=== PATIENT | female | born 1985 | race Hispanic/Latino ===

== ENCOUNTER 2016-06-11 19:39 | Emergency (ER) | payer OTHER ==
[2016-06-11] MEDS ORDERED: METOCLOPRAMIDE INJ 10MG/2ML VIAL (J2765) As Ordered ONE (22:25)
[2016-06-11 22:34] LABS: MEAN CORPUSCULAR HEMOGLOBIN 33.6 pg (27.0-33.0); MEAN CORPUSCULAR HGB CONC 34.8 g/dl (32.0-36.5); MEAN CORPUSCULAR VOLUME 96.5 fl (80.0-96.0); RED CELL DISTRIBUTION WIDTH 12.3 % (11.5-14.5)
[2016-06-11 23:09] LABS: ALBUMIN 3.8 GM/DL (3.2-5.2); ALBUMIN/GLOBULIN RATIO 1.12 (1.00-1.93); ALKALINE PHOSPHATASE 53 U/L (45-117); ALT/SGPT 23 U/L (12-78); ANION GAP 10 MEQ/L (8-16); AST/SGOT 13 U/L (15-37); BILIRUBIN,TOTAL 0.4 MG/DL (0.2-1.0); BLOOD UREA NITROGEN 7 MG/DL (7-18); CALCIUM LEVEL 8.8 MG/DL (8.5-10.1); CARBON DIOXIDE LEVEL 26 MEQ/L (21-32); CHLORIDE LEVEL 104 MEQ/L (98-107); GLOMERULAR FILTRATION RATE > 60.0 (>60); GLUCOSE, FASTING 84 MG/DL (70-105); HCG, SERUM QUANTITATIVE 129381 MIU/ML; POTASSIUM SERUM 3.8 MEQ/L (3.5-5.1); SODIUM LEVEL 140 MEQ/L (136-145); TOTAL PROTEIN 7.2 GM/DL (6.4-8.2)
--- NOTE | 2016-06-11 23:30 | REPUSA ---
Clinical history: Pain. Findings: Real-time transabdominal and transvaginal ultrasound images of the pelvis were obtained. An anteverted uterus is noted, measuring 14.7 x 5.7 x 7.8 cm. The uterus demonstrates normal echotextu re and echogenicity. The endometrial cavity demonstrate a irregularly shaped gestational sac measurin g 6.0 x 2.0 x 3.8 cm. pole measures 17.1 mm. No heart tones are appreciated. The right ov geeta measures 3.6 x 2.4 x 2.0 cm. The left ovary measures 2.8 x 1.5 x 2.9 cm. There is a left ovarian cyst measuring 2.2 cm. No adnexal masses are seen. Color Doppler flow is seen within both ovaries. Th ere is no evidence of free fluid. Impression: 1. Intrauterine gestation measuring 8 weeks 1 day by ultrasound measurements. However, no heart tones are appreciated at this time. The gestational sac is irregular in shape as well. The findings are suspicious for a missed . Follow-up with serial serum beta hCG levels is recommended for further evaluation. 2. Left ovarian corpus luteum cyst.
[2016-06-11] MEDS ORDERED: OXYCODONE/APAP 5MG/325MG(BULK) 1 TAB TAB As Ordered ONE (23:57)
[2016-06-11] MEDS ORDERED: METOCLOPRAMIDE 10 MG TAB As Ordered ONE (23:57)
--- NOTE | 2016-06-12 00:20 | EDDOCDS ---
Physician Documentation [facility] Name: Cathryn Leary Age: 31 yrs Sex: Female : 1985 Arrival Date: 06/11/2016 Time: 19:39 Bed I7 Private MD: Sharon Neri M. Disposition: 06/11/16 23:55 Discharged to Home/Self Care. Impression: Missed - 8 weeks 1 day, No heart tones at this time on Ultrasound., Other ovarian cysts - Left, Nausea and vomiting. - Condition is Stable. - Discharge Instructions: Nausea and Vomiting, [id number]-hg-[id number], Miscarriage, Ydxs-[id number]-Rkxq, Ovarian Cyst, Gvwh-jx-Gqap. - Prescriptions for Percocet 5- 325 mg Oral Tablet - take 1 tablet by ORAL route every 6 hours As needed MDD: 4 tabs; 20 tablet. Reglan 10 mg Oral Tablet - take 1 tablet by ORAL route every 6 hours take 30 minutes before meals and at bedtime; 20 tablet. - Medication Reconciliation, Local Pharmacy Hours form. - Follow up: Anshul Fowler; When: 1 - 2 days; Reason: Further diagnostic work-up, Recheck today's complaints, Continuance of care. Follow up: Emergency Department; Reason: Worsening of conditions. - Problem is new. - Symptoms have improved. Historical: - Allergies: no known allergies; - Home Meds: 1. levothyroxine 50 mcg Oral tab once daily - PMHx: Thyroid problem; chronic left shoulder pain; - PSHx: ; - Social history: Smoking status: Patient uses tobacco products, light tobacco smoker. No barriers to communication noted, The patient speaks fluent Trinidadian. - Family history: Not pertinent. - : The pt / caregiver states he / she is not on anticoagulants. Home medication list is obtained from the patient. - Exposure Risk Screening:: None identified. 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 7 in. (170.18 cm); Pain 7/10; 06/12 00:07 BP 134 / 76; Pulse 87; Resp 18; Temp 98.0(O); Pulse Ox 100% on R/A; Pain 0/10; slm 06/11 19:41 Body Mass Index 24.28 (70.31 kg, 170.18 cm) sew MDM: 06/11 22:03 IV Saline Lock ordered. ef1 22:03 Undress patient appropriately for examination ordered. ef1 22:03 NS 0.9% 1000 ml IV at bolus once ordered. ef1 22:03 Metoclopramide 10 mg IV at 40 mg/hr once over 15 mins ordered. ef1 22:04 Type & Screen Ordered. EDMS 22:05 Complete Blood Count Ordered. EDMS 22:05 Hcg, Serum Quantitative Ordered. EDMS 22:05 Urinalysis Ordered. EDMS 22:05 Complete Comphrensive Metabolic Ordered. EDMS 22:05 Urine Culture Ordered. EDMS 22:05 US 1st trimester Ordered. EDMS 22:57 Complete Blood Count Reviewed. ef1 22:57 Urinalysis Reviewed. ef1 22:57 Type & Screen Reviewed. ef1 23:12 Financial registration complete. [facility] 23:20 [facility] Payment Agreement was scanned into [employer] and attached to record. gjb 23:33 Complete Comphrensive Metabolic Reviewed. ef1 23:33 Hcg, Serum Quantitative Reviewed. ef1 23:33 Type & Screen Reviewed. ef1 23:55 Metoclopramide 10 mg PO once; For take home use please. ordered. ef1 23:55 oxyCODONE-acetaminophen 4 pack 5 mg-325 mg 1 packets PO once; Dispense with pt, take as ef1 per instruction on package ordered. 23:[address] [facility] [place]. Nursing Order ordered. ef1 Administered Medications: 22:30 Drug: NS 0.9% 1000 ml [sodium chloride 0.9 % intravenous solution] Route: IV; Rate: ms2 bolus; Site: left antecubital; 22:30 Drug: Metoclopramide 10 mg [metoclopramide 5 mg/mL injection solution] Route: IV; Rate: ms2 40 mg/hr; Infused Over: 15 mins; Site: left antecubital; 06/12 00:00 Drug: oxyCODONE-acetaminophen 4 pack 1 packets [oxycodone-acetaminophen 5 mg-325 mg af2 tablet (1 tabs)] {Co-Signature: slm (Samantha Lake LPN).} Route: PO; 00:06 Drug: Metoclopramide 10 mg [metoclopramide 10 mg tablet (1 tabs)] {Note: home use.} slm Route: PO; Signatures: Dispatcher MedHost EDAlexandria Marcelo RN RN ck1 Yael Elder PA-C PACarmen ef1 Candi Carey RN RN af2 aRdha Allen Tonya, RN RN tm5 Valeriano Traylor RN ms2 Samantha Lake LPN slm Samantha Lake LPN slm The chart was reviewed and I authenticate all verbal orders and agree with the evaluation and treatment provided.Corrections: (The following items were deleted from the chart) 00:08 06/11 19:58 Home Meds: Mirena 20 mcg/24 hr (5 years) intrauterine IUD; tm5 slm Attachments: 23:20 [facility] Payment Agreement gj MTDD
--- NOTE | 2016-06-12 00:20 | EDDOCDS ---
Nurse's Notes [facility] Name: Cathryn Leary Age: 31 yrs Sex: Female : 1985 Arrival Date: 06/11/2016 Time: 19:39 Bed I7 / 29 Private MD: Sharon Neri M. Diagnosis: Missed -8 weeks 1 day, No heart tones at this time on Ultrasound.;Other ovarian cysts-Left;Nausea and vomiting Presentation: 06/11 19:55 Presenting complaint: Patient states: PER PT FOR THE PAST 2 WEEKS NOW SHE HAS HAD tm5 NAUSEA & VOMITING, PT IS 8 WEEKS & TAKES NO MEDS FOR NAUSEA OR VOMITING, PT FEELS WEAK & FATIGUED. Adult Sepsis Screening: The patient does not have new or worsening altered mentation. Patient's respiratory rate is less than 22. Systolic blood pressure is greater than 100. Patient has a qSOFA score of 0- Negative Sepsis Screen. Suicide/Homicide risk assessment- the patient denies having any suicidal and/or homicidal ideations and does not present with any other emotional, behavioral or mental health complaints. 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 Transition of care: patient was not received from another setting of care. 19:55 Acuity: LYRIC Level 3 tm5 19:55 Method Of Arrival: Walkin/Carried/Asstd tm5 Triage Assessment: 19:58 General: Appears in no apparent distress, Behavior is anxious, appropriate for age. tm5 Pain: Denies pain. Pt Declines HIV testing. Neurological: Level of Consciousness is awake, alert, Oriented to person, place, time. Respiratory: Airway is patent Respiratory effort is even, unlabored, Respiratory pattern is regular, symmetrical. GI: Reports nausea, vomiting. : No deficits noted. Derm: Skin is pink, warm & dry. normal. 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 levothyroxine 50 mcg Oral tab once daily - PMHx: Thyroid problem; chronic left shoulder pain; - PSHx: ; - Social history: Smoking status: Patient uses tobacco products, light tobacco smoker. No barriers to communication noted, The patient speaks fluent Bulgarian. - Family history: Not pertinent. - : The pt / caregiver states he / she is not on anticoagulants. Home medication list is obtained from the patient. - Exposure Risk Screening:: None identified. Screenin:01 Screening information is obtained from the patient. Fall risk: No risks identified. tm5 Assistance ADL's: requires no assistance with activities of daily living. Abuse/DV Screen: The patient / caregiver reports he/she is: not in a situation that causes fear, pain or injury. Nutritional screening: No deficits noted. Advance Directives: Currently, there is no health care proxy. home support is adequate. Assessment: 21:33 General: Appears in no apparent distress, comfortable, Behavior is appropriate for age, ck1 cooperative. Pain: Location: abdomen Pain currently is 2 out of 10 on a pain scale. Quality of pain is described as crampy. GI: Abdomen is non- distended Bowel sounds present X 4 quads. Abd is soft and non tender X 4 quads. Reports nausea, vomiting. : Denies vaginal bleeding. : Denies burning with urination, inability to void. Derm: Skin is pink, warm & dry. 22:30 General: Appears in no apparent distress, Behavior is cooperative. General: teary at ms2 times. Neurological: Level of Consciousness is awake, alert, obeys commands. Respiratory: No deficits noted. Airway is patent Respiratory effort is even, unlabored, Respiratory pattern is regular, symmetrical. Derm: Skin is pink, warm & dry. 06/12 00:17 General: Appears in no apparent distress, comfortable, Behavior is crying, pt and af2 spouse at bedside. rr even and unlabored. speech clear. . Vital Signs: 06/11 19:41 BP 126 / 78; Pulse 78; Resp 16; Temp 96.7(T); Pulse Ox 100% on R/A; Weight 70.31 kg; sew Height 5 ft. 7 in. (170.18 cm); Pain 7/10; 06/12 00:07 BP 134 / 76; Pulse 87; Resp 18; Temp 98.0(O); Pulse Ox 100% on R/A; Pain 0/10; slm 06/11 19:41 Body Mass Index 24.28 (70.31 kg, 170.18 cm) sew Vitals: 06/11 19:41 Log In Time: June 11, 2016 at 19:33. sew ED Course: 19:40 Patient visited by Carol Ann Sepulveda. sew 19:40 Patient moved to Waiting sew 19:41 Sharon Neri is Private Physician. sew 19:42 Patient visited by Carol Ann Sepulveda. sew 19:42 Patient moved to Pre RCE sew 19:58 Triage Initiated tm5 19:58 Family accompanied patient. tm5 21:31 Patient moved to Triage 2 ck1 21:32 Patient moved to Triage 3 nn1 21:33 Patient visited by Alexandria Chaney,BOB. ck1 21:34 The patient / caregiver is instructed regarding the plan of care and ED course. ck1 21:41 Yael Elder PA-C is PHCP. ef1 21:41 Maikel Pratt DO is Attending Physician. ef1 21:49 Patient visited by Yael Elder PA-C. ef1 22:06 Patient moved to d 22:20 Inserted peripheral IV: 20gauge IV in left antecubital area Patient tolerated the ms2 procedure well. 22:24 Patient visited by Valeriano Traylor RN. ms2 22:24 Complete Blood Count Sent. ms2 22:24 Hcg, Serum Quantitative Sent. ms2 22:24 Type & Screen Sent. ms2 22:57 Patient visited by Yael Elder PA-C. ef1 23:20 [facility] Payment Agreement was scanned into Dwe[employer] and attached to record. gjb 23:31 Patient visited by Yael Elder PA-C. ef1 23:52 Patient visited by Yael Elder PA-C. ef1 23:55 Anshul Fowler is Referral Physician. ef1 06/12 00:06 US 1st trimester Returned. EDMS 00:19 Patient visited by Candi Carey RN. af2 Administered Medications: 06/11 22:30 Drug: NS 0.9% 1000 ml [sodium chloride 0.9 % intravenous solution] Route: IV; Rate: ms2 bolus; Site: left antecubital; 22:30 Drug: Metoclopramide 10 mg [metoclopramide 5 mg/mL injection solution] Route: IV; Rate: ms2 40 mg/hr; Infused Over: 15 mins; Site: left antecubital; 06/12 00:00 Drug: oxyCODONE-acetaminophen 4 pack 1 packets [oxycodone-acetaminophen 5 mg-325 mg af2 tablet (1 tabs)] {Co-Signature: slm (Samanthaangela Lake LPN).} Route: PO; 00:06 Drug: Metoclopramide 10 mg [metoclopramide 10 mg tablet (1 tabs)] {Note: home use.} slm Route: PO; Order Results: Lab Order: Complete Blood Count; SPEC'M 06/11/16 22:13 Test: WHITE BLOOD COUNT; Value: 7.0; Range: 4.0-10.0; Units: K/mm3; Status: F Test: RED BLOOD COUNT; Value: 3.94; Range: 4.00-5.40; Abnormal: Below low normal; Units: M/mm3; Status: F Test: HEMOGLOBIN; Value: 13.2; Range: 12.0-16.0; Units: g/dl; Status: F Test: HEMATOCRIT; Value: 38.0; Range: 36.0-47.0; Units: %; Status: F Test: MEAN CORPUSCULAR VOLUME; Value: 96.5; Range: 80.0-96.0; Abnormal: Above high normal; Units: fl; Status: F Test: MEAN CORPUSCULAR HEMOGLOBIN; Value: 33.6; Range: 27.0-33.0; Abnormal: Above high normal; Units: pg; Status: F Test: MEAN CORPUSCULAR HGB CONC; Value: 34.8; Range: 32.0-36.5; Units: g/dl; Status: F Test: RED CELL DISTRIBUTION WIDTH; Value: 12.3; Range: 11.5-14.5; Units: %; Status: F Test: PLATELET COUNT, AUTOMATED; Value: 237; Range: 150-450; Units: k/mm3; Status: F Lab Order: Hcg, Serum Quantitative; SPEC'M 06/11/16 22:13 Test: HCG, SERUM QUANTITATIVE; Value: [id number]; Units: MIU/ML; Status: F Test Note: ; GESTATIONAL AGE APPROXIMATE HCG RANGE (MIU/ML) 0.2-1 WEEK 5-50 1-2 WEEKS 50-500 2-3 WEEKS 100-5,000 3-4 WEEKS 500-10,000 4-5 WEEKS 1,000-50,000 5-6 WEEKS 10,000-100,000 6-8 WEEKS 15,000-200,000 2-3 MONTHS 10,000-100,000 NON FEMALES LESS THAN 3.0 Patient samples may contain human heterophilic antibodies that could react with immunoassays to give falsely elevated or depressed results. This assay has been designed to minimize interference from heterophilic antibodies. Elevated hCG levels have also been associated with trophoblastic disease and nontrophoblastic neoplasms. The possibility of having these diseases should be considered before a diagnosis of is made. This test is not intended for use as a surrogate marker for aiding in the diagnosis or monitoring the treatment of cancer patients. Siemens StepLeader methodology. Lab Order: Type & Screen; SPEC'M 06/11/16 22:13 Test: BLOOD TYPE; Value: A POS; Status: F Test: AB SCREEN (INDIRECT BASSAM)GEL; Value: NEGATIVE; Status: F Lab Order: Urinalysis; SPEC'M 06/11/16 22:10 Test: APPEARANCE, URINE; Value: HAZY; Range: CLEAR; Status: F Test: COLOR, URINE; Value: YELLOW; Range: YELLOW; Status: F Test: PH,URINE; Value: 6.0; Range: 5.0-9.0; Units: UNITS; Status: F Test: SPECIFIC GRAVITY URINE AUTO; Value: 1.019; Range: 1.002-1.035; Status: F Test: PROTEIN, URINE AUTO; Value: NEGATIVE; Range: NEGATIVE; Units: mg/dL; Status: F Test: GLUCOSE, URINE (UA) AUTO; Value: NEGATIVE; Range: NEGATIVE; Units: mg/dL; Status: F Test: KETONE, URINE AUTO; Value: TRACE; Range: NEGATIVE; Abnormal: Above high normal; Units: mg/dL; Status: F Test: UROBILINOGEN, URINE AUTO; Value: 0.2; Range: 0.0-2.0; Units: mg/dL; Status: F Test: BILIRUBIN, URINE AUTO; Value: NEGATIVE; Range: NEGATIVE; Status: F Test: NITRITE, URINE AUTO; Value: NEGATIVE; Range: NEGATIVE; Status: F Test: LEUKOCYTE ESTERASE, URINE AUTO; Value: NEGATIVE; Range: NEGATIVE; Status: F Test: BLOOD, URINE BLOOD; Value: NEGATIVE; Range: NEGATIVE; Status: F Test: WBC, URINE AUTO; Value: 1; Range: 0-3; Units: /HPF; Status: F Test: RBC, URINE AUTO; Value: 1; Range: 0-3; Units: /HPF; Status: F Test: BACTERIA, URINE AUTO; Value: 1+; Range: NEGATIVE; Abnormal: Above high normal; Status: F Test: SQUAMOUS EPITHELIAL CELL UR AU; Value: 9; Range: 0-6; Units: /HPF; Status: F Test: MUCUS, URINE; Value: LARGE; Range: NEGATIVE; Status: F Test: HYALINE CAST, URINE AUTO; Value: 2; Range: 0-1; Units: /LPF; Status: F Lab Order: Complete Comphrensive Metabolic; SPEC'M 06/11/16 22:13 Test: GLUCOSE, FASTING; Value: 84; Range: 70-105; Units: MG/DL; Status: F Test: BLOOD UREA NITROGEN; Value: 7; Range: 7-18; Units: MG/DL; Status: F Test: CREATININE FOR GFR; Value: 0.70; Range: 0.55-1.02; Units: MG/DL; Status: F Test: GLOMERULAR FILTRATION RATE; Value: > 60.0; Range: >60; Status: F Test: SODIUM LEVEL; Value: 140; Range: 136-145; Units: MEQ/L; Status: F Test: POTASSIUM SERUM; Value: 3.8; Range: 3.5-5.1; Units: MEQ/L; Status: F Test: CHLORIDE LEVEL; Value: 104; Range: 98-107; Units: MEQ/L; Status: F Test: CARBON DIOXIDE LEVEL; Value: 26; Range: 21-32; Units: MEQ/L; Status: F Test: ANION GAP; Value: 10; Range: 8-16; Units: MEQ/L; Status: F Test: CALCIUM LEVEL; Value: 8.8; Range: 8.5-10.1; Units: MG/DL; Status: F Test: AST/SGOT; Value: 13; Range: 15-37; Abnormal: Below low normal; Units: U/L; Status: F Test: ALT/SGPT; Value: 23; Range: 12-78; Units: U/L; Status: F Test: ALKALINE PHOSPHATASE; Value: 53; Range: 45-117; Units: U/L; Status: F Test: BILIRUBIN,TOTAL; Value: 0.4; Range: 0.2-1.0; Units: MG/DL; Status: F Test: TOTAL PROTEIN; Value: 7.2; Range: 6.4-8.2; Units: GM/DL; Status: F Test: ALBUMIN; Value: 3.8; Range: 3.2-5.2; Units: GM/DL; Status: F Test: ALBUMIN/GLOBULIN RATIO; Value: 1.12; Range: 1.00-1.93; Status: F Test Note: ; Units are mL/min/1.73 m2 Chronic Kidney Disease Staging per NKF: Stage I & II GFR >=60 Normal to Mildly Decreased Stage III GFR 30-59 Moderately Decreased Stage IV GFR 15-29 Severely Decreased Stage V GFR <15 Very Little GFR Left ESRD GFR <15 on MULTI SHARE PROGRAM COORDINATOR Radiology Order: US 1st trimester Test: US 1st trimester REASON FOR EXAMINATION: pelvic pain, ; ; Clinical history: Pain.; Findings: Real-time transabdominal and transvaginal ultrasound images of the pelvis were obtained. An; anteverted uterus is noted, measuring 14.7 x 5.7 x 7.8 cm. The uterus demonstrates normal echotextu; re and echogenicity. The endometrial cavity demonstrate a irregularly shaped gestational sac measurin; g 6.0 x 2.0 x 3.8 cm. pole measures 17.1 mm. No heart tones are appreciated. The right ov; geeta measures 3.6 x 2.4 x 2.0 cm. The left ovary measures 2.8 x 1.5 x 2.9 cm. There is a left ovarian; cyst measuring 2.2 cm. No adnexal masses are seen. Color Doppler flow is seen within both ovaries. Th; ere is no evidence of free fluid.; Impression:; 1. Intrauterine gestation measuring 8 weeks 1 day by ultrasound measurements. However, no heart; tones are appreciated at this time. The gestational sac is irregular in shape as well. The findings; are suspicious for a missed . Follow-up with serial serum beta hCG levels is recommended for; further evaluation.; 2. Left ovarian corpus luteum cyst.; ; Outcome: 06/11 23:55 Discharge ordered by Provider. ef1 06/12 00:19 Patient left the ED. af2 Signatures: Dispatcher MedHost EDMS Valeriano Traylor,RN RN ms2 Alexandria Chaney RN RN ck1 Yael Elder, PAYeimiC PA-C ef1 Carol Ann Sepulveda Stephanie, LPN LPN slm Donoghue, Joseph, DILAN DIRECTOR OF VALUATION Candi Beltran RN RN af2 Seymour Oliver RN RN nn1 Radha Allen Tonya, RN RN tm5 Samantha pisano Corrections: (The following items were deleted from the chart) 00:08 06/11 19:58 Home Meds: Mirena 20 mcg/24 hr (5 years) intrauterine IUD; tm5 kimberlee MTDD
--- NOTE | 2016-06-14 01:20 | EDDOCDS ---
Physician Documentation [facility] Name: Cathryn Leary Age: 31 yrs Sex: Female : 1985 Arrival Date: 06/11/2016 Time: 19:39 Bed I7 Private MD: Sharon Neri M. Disposition: 06/11/16 23:55 Discharged to Home/Self Care. Impression: Missed - 8 weeks 1 day, No heart tones at this time on Ultrasound., Other ovarian cysts - Left, Nausea and vomiting. - Condition is Stable. - Discharge Instructions: Nausea and Vomiting, Pclw-io-Yahg, Miscarriage, Vkzv-fl-Gpil, Ovarian Cyst, Hhgb-pj-Erxm. - Prescriptions for Percocet 5- 325 mg Oral Tablet - take 1 tablet by ORAL route every 6 hours As needed MDD: 4 tabs; 20 tablet. Reglan 10 mg Oral Tablet - take 1 tablet by ORAL route every 6 hours take 30 minutes before meals and at bedtime; 20 tablet. - Medication Reconciliation, Local Pharmacy Hours form. - Follow up: Anshul Fowler; When: 1 - 2 days; Reason: Further diagnostic work-up, Recheck today's complaints, Continuance of care. Follow up: Emergency Department; Reason: Worsening of conditions. - Problem is new. - Symptoms have improved. Historical: - Allergies: no known allergies; - Home Meds: 1. levothyroxine 50 mcg Oral tab once daily - PMHx: Thyroid problem; chronic left shoulder pain; - PSHx: ; - Social history: Smoking status: Patient uses tobacco products, light tobacco smoker. No barriers to communication noted, The patient speaks fluent South Korean. - Family history: Not pertinent. - : The pt / caregiver states he / she is not on anticoagulants. Home medication list is obtained from the patient. - Exposure Risk Screening:: None identified. 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 7 in. (170.18 cm); Pain 7/10; 06/12 00:07 BP 134 / 76; Pulse 87; Resp 18; Temp 98.0(O); Pulse Ox 100% on R/A; Pain 0/10; slm 06/11 19:41 Body Mass Index 24.28 (70.31 kg, 170.18 cm) sew MDM: 06/11 22:03 IV Saline Lock ordered. ef1 22:03 Undress patient appropriately for examination ordered. ef1 22:03 NS 0.9% 1000 ml IV at bolus once ordered. ef1 22:03 Metoclopramide 10 mg IV at 40 mg/hr once over 15 mins ordered. ef1 22:04 Type & Screen Ordered. EDMS 22:05 Complete Blood Count Ordered. EDMS 22:05 Hcg, Serum Quantitative Ordered. EDMS 22:05 Urinalysis Ordered. EDMS 22:05 Complete Comphrensive Metabolic Ordered. EDMS 22:05 Urine Culture Ordered. EDMS 22:05 US 1st trimester Ordered. EDMS 22:57 Complete Blood Count Reviewed. ef1 22:57 Urinalysis Reviewed. ef1 22:57 Type & Screen Reviewed. ef1 23:12 Financial registration complete. b 23:20 [facility] Payment Agreement was scanned into [employer] and attached to record. gjb 23:33 Complete Comphrensive Metabolic Reviewed. ef1 23:33 Hcg, Serum Quantitative Reviewed. ef1 23:33 Type & Screen Reviewed. ef1 23:55 Metoclopramide 10 mg PO once; For take home use please. ordered. ef1 23:55 oxyCODONE-acetaminophen 4 pack 5 mg-325 mg 1 packets PO once; Dispense with pt, take as ef1 per instruction on package ordered. 23:58 [facility] [place]. Nursing Order ordered. ef1 06/12 12:21 T-Sheet-- Draft Copy was scanned into [employer] and attached to record. gb 12:21 Radiology Report was scanned into [employer] and attached to record. gb Administered Medications: 06/11 22:30 Drug: NS 0.9% 1000 ml [sodium chloride 0.9 % intravenous solution] Route: IV; Rate: ms2 bolus; Site: left antecubital; 22:30 Drug: Metoclopramide 10 mg [metoclopramide 5 mg/mL injection solution] Route: IV; Rate: ms2 40 mg/hr; Infused Over: 15 mins; Site: left antecubital; 06/12 00:00 Drug: oxyCODONE-acetaminophen 4 pack 1 packets [oxycodone-acetaminophen 5 mg-325 mg af2 tablet (1 tabs)] {Co-Signature: slm (Samantha Lake LPN).} Route: PO; 00:06 Drug: Metoclopramide 10 mg [metoclopramide 10 mg tablet (1 tabs)] {Note: home use.} slm Route: PO; Signatures: Dispatcher MedHost EDMS Diya Silver, Reg Reg gb Alexandria Chaney,RN RN ck1 Yael Elder PA-C PA-C efCandi Wren RN RN af2 Radha Allen Tonya, RN RN tm5 Valeriano Traylor RN ms2 Samantha Lake LPN slkimberlee Lake LPN slkimberlee The chart was reviewed and I authenticate all verbal orders and agree with the evaluation and treatment provided.Corrections: (The following items were deleted from the chart) 00:08 06/11 19:58 Home Meds: Mirena 20 mcg/24 hr (5 years) intrauterine IUD; tm5 slm Attachments: 23:20 [facility] Payment Agreement gjb 06/12 12:21 T-Sheet-- Draft Copy gb Chart Complete MTDD
--- NOTE | 2016-06-14 01:20 | EDDOCDS ---
Physician Documentation [facility] Name: Cathryn Leary Age: 31 yrs Sex: Female : 1985 Arrival Date: 06/11/2016 Time: 19:39 Bed I7 Private MD: Sharon Neri M. Disposition: 06/11/16 23:55 Discharged to Home/Self Care. Impression: Missed - 8 weeks 1 day, No heart tones at this time on Ultrasound., Other ovarian cysts - Left, Nausea and vomiting. - Condition is Stable. - Discharge Instructions: Nausea and Vomiting, [id number], Miscarriage, Syuy-og-Cvif, Ovarian Cyst, Psmv-ef-Usbu. - Prescriptions for Percocet 5- 325 mg Oral Tablet - take 1 tablet by ORAL route every 6 hours As needed MDD: 4 tabs; 20 tablet. Reglan 10 mg Oral Tablet - take 1 tablet by ORAL route every 6 hours take 30 minutes before meals and at bedtime; 20 tablet. - Medication Reconciliation, Local Pharmacy Hours form. - Follow up: Anshul Fowler; When: 1 - 2 days; Reason: Further diagnostic work-up, Recheck today's complaints, Continuance of care. Follow up: Emergency Department; Reason: Worsening of conditions. - Problem is new. - Symptoms have improved. Historical: - Allergies: no known allergies; - Home Meds: 1. levothyroxine 50 mcg Oral tab once daily - PMHx: Thyroid problem; chronic left shoulder pain; - PSHx: ; - Social history: Smoking status: Patient uses tobacco products, light tobacco smoker. No barriers to communication noted, The patient speaks fluent Dominican. - Family history: Not pertinent. - : The pt / caregiver states he / she is not on anticoagulants. Home medication list is obtained from the patient. - Exposure Risk Screening:: None identified. 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 7 in. (170.18 cm); Pain 7/10; 06/12 00:07 BP 134 / 76; Pulse 87; Resp 18; Temp 98.0(O); Pulse Ox 100% on R/A; Pain 0/10; slm 06/11 19:41 Body Mass Index 24.28 (70.31 kg, 170.18 cm) sew MDM: 06/11 22:03 IV Saline Lock ordered. ef1 22:03 Undress patient appropriately for examination ordered. ef1 22:03 NS 0.9% 1000 ml IV at bolus once ordered. ef1 22:03 Metoclopramide 10 mg IV at 40 mg/hr once over 15 mins ordered. ef1 22:04 Type & Screen Ordered. EDMS 22:05 Complete Blood Count Ordered. EDMS 22:05 Hcg, Serum Quantitative Ordered. EDMS 22:05 Urinalysis Ordered. EDMS 22:05 Complete Comphrensive Metabolic Ordered. EDMS 22:05 Urine Culture Ordered. EDMS 22:05 US 1st trimester Ordered. EDMS 22:57 Complete Blood Count Reviewed. ef1 22:57 Urinalysis Reviewed. ef1 22:57 Type & Screen Reviewed. ef1 23:12 Financial registration complete. b 23:20 [facility] Payment Agreement was scanned into [employer] and attached to record. gjb 23:33 Complete Comphrensive Metabolic Reviewed. ef1 23:33 Hcg, Serum Quantitative Reviewed. ef1 23:33 Type & Screen Reviewed. ef1 23:55 Metoclopramide 10 mg PO once; For take home use please. ordered. ef1 23:55 oxyCODONE-acetaminophen 4 pack 5 mg-325 mg 1 packets PO once; Dispense with pt, take as ef1 per instruction on package ordered. 23:58 [facility]. Nursing Order ordered. ef1 06/12 12:21 T-Sheet-- Draft Copy was scanned into [employer] and attached to record. gb 12:21 Radiology Report was scanned into [employer] and attached to record. gb Administered Medications: 06/11 22:30 Drug: NS 0.9% 1000 ml [sodium chloride 0.9 % intravenous solution] Route: IV; Rate: ms2 bolus; Site: left antecubital; 22:30 Drug: Metoclopramide 10 mg [metoclopramide 5 mg/mL injection solution] Route: IV; Rate: ms2 40 mg/hr; Infused Over: 15 mins; Site: left antecubital; 06/12 00:00 Drug: oxyCODONE-acetaminophen 4 pack 1 packets [oxycodone-acetaminophen 5 mg-325 mg af2 tablet (1 tabs)] {Co-Signature: slm (Samantha Lake LPN).} Route: PO; 00:06 Drug: Metoclopramide 10 mg [metoclopramide 10 mg tablet (1 tabs)] {Note: home use.} slm Route: PO; Signatures: Dispatcher [employer] EDMS Diya Silver, Reg Reg gb Alexandria Chaney,RN RN ck1 Yael Elder PA-C PA-C efCandi Wren RN RN af2 Radha Allen Tonya, RN RN tm5 Valeriano Traylor RN ms2 Samantha Lake LPN slkimberlee Lake LPN slkimberlee The chart was reviewed and I authenticate all verbal orders and agree with the evaluation and treatment provided.Corrections: (The following items were deleted from the chart) 00:08 06/11 19:58 Home Meds: Mirena 20 mcg/24 hr (5 years) intrauterine IUD; tm5 slm Attachments: 23:20 [facility] Payment Agreement gjb 06/12 12:21 T-Sheet-- Draft Copy gb Chart Complete MTDD
--- NOTE | 2016-06-14 01:20 | EDDOCDS ---
Nurse's Notes [facility] Name: Cathryn Leary Age: 31 yrs Sex: Female : 1985 Arrival Date: 06/11/2016 Time: 19:39 Bed I7 / 29 Private MD: Sharon Neri M. Diagnosis: Missed -8 weeks 1 day, No heart tones at this time on Ultrasound.;Other ovarian cysts-Left;Nausea and vomiting Presentation: 06/11 19:55 Presenting complaint: Patient states: PER PT FOR THE PAST 2 WEEKS NOW SHE HAS HAD tm5 NAUSEA & VOMITING, PT IS 8 WEEKS & TAKES NO MEDS FOR NAUSEA OR VOMITING, PT FEELS WEAK & FATIGUED. Adult Sepsis Screening: The patient does not have new or worsening altered mentation. Patient's respiratory rate is less than 22. Systolic blood pressure is greater than 100. Patient has a qSOFA score of 0- Negative Sepsis Screen. Suicide/Homicide risk assessment- the patient denies having any suicidal and/or homicidal ideations and does not present with any other emotional, behavioral or mental health complaints. 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 Transition of care: patient was not received from another setting of care. 19:55 Acuity: LYRIC Level 3 tm5 19:55 Method Of Arrival: Walkin/Carried/Asstd tm5 Triage Assessment: 19:58 General: Appears in no apparent distress, Behavior is anxious, appropriate for age. tm5 Pain: Denies pain. Pt Declines HIV testing. Neurological: Level of Consciousness is awake, alert, Oriented to person, place, time. Respiratory: Airway is patent Respiratory effort is even, unlabored, Respiratory pattern is regular, symmetrical. GI: Reports nausea, vomiting. : No deficits noted. Derm: Skin is pink, warm & dry. normal. 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 levothyroxine 50 mcg Oral tab once daily - PMHx: Thyroid problem; chronic left shoulder pain; - PSHx: ; - Social history: Smoking status: Patient uses tobacco products, light tobacco smoker. No barriers to communication noted, The patient speaks fluent Zambian. - Family history: Not pertinent. - : The pt / caregiver states he / she is not on anticoagulants. Home medication list is obtained from the patient. - Exposure Risk Screening:: None identified. Screenin:01 Screening information is obtained from the patient. Fall risk: No risks identified. tm5 Assistance ADL's: requires no assistance with activities of daily living. Abuse/DV Screen: The patient / caregiver reports he/she is: not in a situation that causes fear, pain or injury. Nutritional screening: No deficits noted. Advance Directives: Currently, there is no health care proxy. home support is adequate. Assessment: 21:33 General: Appears in no apparent distress, comfortable, Behavior is appropriate for age, ck1 cooperative. Pain: Location: abdomen Pain currently is 2 out of 10 on a pain scale. Quality of pain is described as crampy. GI: Abdomen is non- distended Bowel sounds present X 4 quads. Abd is soft and non tender X 4 quads. Reports nausea, vomiting. : Denies vaginal bleeding. : Denies burning with urination, inability to void. Derm: Skin is pink, warm & dry. 22:30 General: Appears in no apparent distress, Behavior is cooperative. General: teary at ms2 times. Neurological: Level of Consciousness is awake, alert, obeys commands. Respiratory: No deficits noted. Airway is patent Respiratory effort is even, unlabored, Respiratory pattern is regular, symmetrical. Derm: Skin is pink, warm & dry. 06/12 00:17 General: Appears in no apparent distress, comfortable, Behavior is crying, pt and af2 spouse at bedside. rr even and unlabored. speech clear. . Vital Signs: 06/11 19:41 BP 126 / 78; Pulse 78; Resp 16; Temp 96.7(T); Pulse Ox 100% on R/A; Weight 70.31 kg; sew Height 5 ft. 7 in. (170.18 cm); Pain 7/10; 06/12 00:07 BP 134 / 76; Pulse 87; Resp 18; Temp 98.0(O); Pulse Ox 100% on R/A; Pain 0/10; slm 06/11 19:41 Body Mass Index 24.28 (70.31 kg, 170.18 cm) sew Vitals: 06/11 19:41 Log In Time: June 11, 2016 at 19:33. sew ED Course: 19:40 Patient visited by Carol Ann Sepulveda. sew 19:40 Patient moved to Waiting sew 19:41 Sharon Neri is Private Physician. sew 19:42 Patient visited by Carol Ann Sepulveda. sew 19:42 Patient moved to Pre RCE sew 19:58 Triage Initiated tm5 19:58 Family accompanied patient. tm5 21:31 Patient moved to Triage 2 ck1 21:32 Patient moved to Triage 3 nn1 21:33 Patient visited by Alexandria Chaney,BOB. ck1 21:34 The patient / caregiver is instructed regarding the plan of care and ED course. ck1 21:41 Yael Elder PA-C is PHCP. ef1 21:41 Maikel Pratt DO is Attending Physician. ef1 21:49 Patient visited by Yael Elder PA-C. ef1 22:06 Patient moved to d 22:20 Inserted peripheral IV: 20gauge IV in left antecubital area Patient tolerated the ms2 procedure well. 22:24 Patient visited by Valeriano Traylor RN. ms2 22:24 Complete Blood Count Sent. ms2 22:24 Hcg, Serum Quantitative Sent. ms2 22:24 Type & Screen Sent. ms2 22:57 Patient visited by Yael Elder PA-C. ef1 23:20 [facility] Payment Agreement was scanned into [employer] and attached to record. gjb 23:31 Patient visited by Yael Eldre PA-C. ef1 23:52 Patient visited by Yael Elder PA-C. ef1 23:55 Anshul Fowler is Referral Physician. ef1 06/12 00:06 US 1st trimester Returned. EDMS 00:19 Patient visited by Candi Carey RN. af2 12:21 T-Sheet-- Draft Copy was scanned into [employer] and attached to record. gb 12:21 Radiology Report was scanned into [employer] and attached to record. gb Administered Medications: 06/11 22:30 Drug: NS 0.9% 1000 ml [sodium chloride 0.9 % intravenous solution] Route: IV; Rate: ms2 bolus; Site: left antecubital; 22:30 Drug: Metoclopramide 10 mg [metoclopramide 5 mg/mL injection solution] Route: IV; Rate: ms2 40 mg/hr; Infused Over: 15 mins; Site: left antecubital; 06/12 00:00 Drug: oxyCODONE-acetaminophen 4 pack 1 packets [oxycodone-acetaminophen 5 mg-325 mg af2 tablet (1 tabs)] {Co-Signature: slm (Samantha Fangtyrell GONSALEZ).} Route: PO; 00:06 Drug: Metoclopramide 10 mg [metoclopramide 10 mg tablet (1 tabs)] {Note: home use.} slm Route: PO; Order Results: Lab Order: Complete Blood Count; SPEC'M 06/11/16 22:13 Test: WHITE BLOOD COUNT; Value: 7.0; Range: 4.0-10.0; Units: K/mm3; Status: F Test: RED BLOOD COUNT; Value: 3.94; Range: 4.00-5.40; Abnormal: Below low normal; Units: M/mm3; Status: F Test: HEMOGLOBIN; Value: 13.2; Range: 12.0-16.0; Units: g/dl; Status: F Test: HEMATOCRIT; Value: 38.0; Range: 36.0-47.0; Units: %; Status: F Test: MEAN CORPUSCULAR VOLUME; Value: 96.5; Range: 80.0-96.0; Abnormal: Above high normal; Units: fl; Status: F Test: MEAN CORPUSCULAR HEMOGLOBIN; Value: 33.6; Range: 27.0-33.0; Abnormal: Above high normal; Units: pg; Status: F Test: MEAN CORPUSCULAR HGB CONC; Value: 34.8; Range: 32.0-36.5; Units: g/dl; Status: F Test: RED CELL DISTRIBUTION WIDTH; Value: 12.3; Range: 11.5-14.5; Units: %; Status: F Test: PLATELET COUNT, AUTOMATED; Value: 237; Range: 150-450; Units: k/mm3; Status: F Lab Order: Hcg, Serum Quantitative; SPEC'M 06/11/16 22:13 Test: HCG, SERUM QUANTITATIVE; Value: [id number]; Units: MIU/ML; Status: F Test Note: ; GESTATIONAL AGE APPROXIMATE HCG RANGE (MIU/ML) 0.2-1 WEEK 5-50 1-2 WEEKS 50-500 2-3 WEEKS 100-5,000 3-4 WEEKS 500-10,000 4-5 WEEKS 1,000-50,000 5-6 WEEKS 10,000-100,000 6-8 WEEKS 15,000-200,000 2-3 MONTHS 10,000-100,000 NON FEMALES LESS THAN 3.0 Patient samples may contain human heterophilic antibodies that could react with immunoassays to give falsely elevated or depressed results. This assay has been designed to minimize interference from heterophilic antibodies. Elevated hCG levels have also been associated with trophoblastic disease and nontrophoblastic neoplasms. The possibility of having these diseases should be considered before a diagnosis of is made. This test is not intended for use as a surrogate marker for aiding in the diagnosis or monitoring the treatment of cancer patients. Siemens ustyme methodology. Lab Order: Type & Screen; SPEC'M 06/11/16 22:13 Test: BLOOD TYPE; Value: A POS; Status: F Test: AB SCREEN (INDIRECT BASSAM)GEL; Value: NEGATIVE; Status: F Lab Order: Urinalysis; SPEC'M 06/11/16 22:10 Test: APPEARANCE, URINE; Value: HAZY; Range: CLEAR; Status: F Test: COLOR, URINE; Value: YELLOW; Range: YELLOW; Status: F Test: PH,URINE; Value: 6.0; Range: 5.0-9.0; Units: UNITS; Status: F Test: SPECIFIC GRAVITY URINE AUTO; Value: 1.019; Range: 1.002-1.035; Status: F Test: PROTEIN, URINE AUTO; Value: NEGATIVE; Range: NEGATIVE; Units: mg/dL; Status: F Test: GLUCOSE, URINE (UA) AUTO; Value: NEGATIVE; Range: NEGATIVE; Units: mg/dL; Status: F Test: KETONE, URINE AUTO; Value: TRACE; Range: NEGATIVE; Abnormal: Above high normal; Units: mg/dL; Status: F Test: UROBILINOGEN, URINE AUTO; Value: 0.2; Range: 0.0-2.0; Units: mg/dL; Status: F Test: BILIRUBIN, URINE AUTO; Value: NEGATIVE; Range: NEGATIVE; Status: F Test: NITRITE, URINE AUTO; Value: NEGATIVE; Range: NEGATIVE; Status: F Test: LEUKOCYTE ESTERASE, URINE AUTO; Value: NEGATIVE; Range: NEGATIVE; Status: F Test: BLOOD, URINE BLOOD; Value: NEGATIVE; Range: NEGATIVE; Status: F Test: WBC, URINE AUTO; Value: 1; Range: 0-3; Units: /HPF; Status: F Test: RBC, URINE AUTO; Value: 1; Range: 0-3; Units: /HPF; Status: F Test: BACTERIA, URINE AUTO; Value: 1+; Range: NEGATIVE; Abnormal: Above high normal; Status: F Test: SQUAMOUS EPITHELIAL CELL UR AU; Value: 9; Range: 0-6; Units: /HPF; Status: F Test: MUCUS, URINE; Value: LARGE; Range: NEGATIVE; Status: F Test: HYALINE CAST, URINE AUTO; Value: 2; Range: 0-1; Units: /LPF; Status: F Lab Order: Urine Culture; SPEC'M 06/11/16 22:10 Test: URINE CULTURE; Value: URINE CULTURE RESULT NO GROWTH CLINICAL SIGNIFICANCE 1 ORGANISM; Status: F Lab Order: Complete Comphrensive Metabolic; SPEC'M 06/11/16 22:13 Test: GLUCOSE, FASTING; Value: 84; Range: 70-105; Units: MG/DL; Status: F Test: BLOOD UREA NITROGEN; Value: 7; Range: 7-18; Units: MG/DL; Status: F Test: CREATININE FOR GFR; Value: 0.70; Range: 0.55-1.02; Units: MG/DL; Status: F Test: GLOMERULAR FILTRATION RATE; Value: > 60.0; Range: >60; Status: F Test: SODIUM LEVEL; Value: 140; Range: 136-145; Units: MEQ/L; Status: F Test: POTASSIUM SERUM; Value: 3.8; Range: 3.5-5.1; Units: MEQ/L; Status: F Test: CHLORIDE LEVEL; Value: 104; Range: 98-107; Units: MEQ/L; Status: F Test: CARBON DIOXIDE LEVEL; Value: 26; Range: 21-32; Units: MEQ/L; Status: F Test: ANION GAP; Value: 10; Range: 8-16; Units: MEQ/L; Status: F Test: CALCIUM LEVEL; Value: 8.8; Range: 8.5-10.1; Units: MG/DL; Status: F Test: AST/SGOT; Value: 13; Range: 15-37; Abnormal: Below low normal; Units: U/L; Status: F Test: ALT/SGPT; Value: 23; Range: 12-78; Units: U/L; Status: F Test: ALKALINE PHOSPHATASE; Value: 53; Range: 45-117; Units: U/L; Status: F Test: BILIRUBIN,TOTAL; Value: 0.4; Range: 0.2-1.0; Units: MG/DL; Status: F Test: TOTAL PROTEIN; Value: 7.2; Range: 6.4-8.2; Units: GM/DL; Status: F Test: ALBUMIN; Value: 3.8; Range: 3.2-5.2; Units: GM/DL; Status: F Test: ALBUMIN/GLOBULIN RATIO; Value: 1.12; Range: 1.00-1.93; Status: F Test Note: ; Units are mL/min/1.73 m2 Chronic Kidney Disease Staging per NKF: Stage I & II GFR >=60 Normal to Mildly Decreased Stage III GFR 30-59 Moderately Decreased Stage IV GFR 15-29 Severely Decreased Stage V GFR <15 Very Little GFR Left ESRD GFR <15 on COMPLIANCE CLERK Radiology Order: US 1st trimester Test: US 1st trimester REASON FOR EXAMINATION: pelvic pain, ; ; Clinical history: Pain.; Findings: Real-time transabdominal and transvaginal ultrasound images of the pelvis were obtained. An; anteverted uterus is noted, measuring 14.7 x 5.7 x 7.8 cm. The uterus demonstrates normal echotextu; re and echogenicity. The endometrial cavity demonstrate a irregularly shaped gestational sac measurin; g 6.0 x 2.0 x 3.8 cm. pole measures 17.1 mm. No heart tones are appreciated. The right ov; geeta measures 3.6 x 2.4 x 2.0 cm. The left ovary measures 2.8 x 1.5 x 2.9 cm. There is a left ovarian; cyst measuring 2.2 cm. No adnexal masses are seen. Color Doppler flow is seen within both ovaries. Th; ere is no evidence of free fluid.; Impression:; 1. Intrauterine gestation measuring 8 weeks 1 day by ultrasound measurements. However, no heart; tones are appreciated at this time. The gestational sac is irregular in shape as well. The findings; are suspicious for a missed . Follow-up with serial serum beta hCG levels is recommended for; further evaluation.; 2. Left ovarian corpus luteum cyst.; ; Outcome: 06/11 23:55 Discharge ordered by Provider. ef1 06/12 00:19 Patient left the ED. af2 Signatures: Dispatcher [employer] EDMS Valeriano Traylor,RN RN ms2 Diya Silver, Reg Reg gb Alexandria ChaneyRN RN ck1 Yael Elder, PAYeimiC PACarmen ef1 Carol Ann Sepulveda Stephanie, LPN EXPEDITER SERVICE ORDER slm Herberth Pruett, DILAN HUMAN RESOURCE PROFESSIONAL Candi Beltran RN RN af2 Seymour Oliver RN RN nn1 Radha Allen Tonya, RN RN tm5 Samantha Lake LPN slm Corrections: (The following items were deleted from the chart) 00:08 06/11 19:58 Home Meds: Mirena 20 mcg/24 hr (5 years) intrauterine IUD; tm5 slm Chart Complete MTDD
[2016-06-15] MEDS ORDERED: LEVO25TA5 PO (13:17)
[2016-06-15] MEDS ORDERED: XANA0.5T PO (13:17)
== END 2016-06-12 00:19 | disposition home or self-care (01) ==
LOC: M ED 19:39
DX: O02.1 Missed abortion (principal); Z3A.08 8 weeks gestation of pregnancy; R11.2 Nausea with vomiting, unspecified; N83.209 Unspecified ovarian cyst, unspecified side; E07.9 Disorder of thyroid, unspecified; M25.512 Pain in left shoulder; Z79.899 Other long term (current) drug therapy; F17.210 Nicotine dependence, cigarettes, uncomplicated
CPT/HCPCS: 36415; 76801; 80053; 81001; 84702; 85027; 86850; 86900; 86901; 87086; 96374; 99284; J2765

== ENCOUNTER → 2016-06-15 | Day surgery (SDC) | payer OTHER ==
[~2016-06-15] MED LIST: ACETAMINOPHEN 500 MG TAB PO PRN; KETOROLAC 60 MG/2 ML VIAL (J1885) As Ordered ONE; LEVO25TA5 PO; LIDOCAINE 1% MDV 20ML VIAL As Ordered ONE; LR 1,000 ML IV SCH; MEPERIDINE INJ 25 MG/ML VIAL (J2175) IV PRN; METOCLOPRAMIDE INJ 10MG/2ML VIAL (J2765) IV PRN; MIDAZOLAM INJ 2 MG/2 ML VIAL (J2250) As Ordered ONE; ONDANSETRON 4MG/2ML VIAL (J2405) As Ordered ONE; ONDANSETRON 4MG/2ML VIAL (J2405) IV PRN; PERCOCET 5MG/325MG TAB PO PRN; PROPOFOL 200 MG/20 ML VIAL As Ordered ONE; XANA0.5T PO; dexameTHASONE 4 MG/ML 1ML VIAL (J1100) As Ordered ONE; fentaNYL 100 MCG/2 ML INJECTION (J3010) As Ordered ONE; fentaNYL 100 MCG/2 ML INJECTION (J3010) IV PRN
[2016-06-15 16:30] VITALS: BP 118/71
--- NOTE | 2016-06-15 19:30 | RO ---
DATE OF PROCEDURE: 06/15/2016 PREOPERATIVE DIAGNOSIS: Embryonic demise. POSTOPERATIVE DIAGNOSIS: Embryonic demise. PROCEDURE: Suction dilation, evacuation and curettage (D, E and C). SURGEON: Bertrand Evans MD HELPER STEEL FABRICATION: ANESTHESIA: Local with sedation. ESTIMATED BLOOD LOSS: 20 mL. FINDINGS: Moderate amount of products of conception. OPERATIVE SUMMARY: The patient taken to the operating room, where intravenous (IV) sedation was given. She was prepped and draped in sterile fashion in the dorsal lithotomy position. A speculum was placed in the vagina. The anterior lips of the cervix was grasped with a tenaculum. The cervix was injected circumferentially with 20 mL of 1% Lidocaine. The cervix was dilated with Taper dilators. A #9 mm suction curette was placed thought the internal os. The suction device was activated and the curette was gently rotated until products of conception were noted coming through the suction tubing. Sharp curettage was performed. The uterine cavity was deemed to be empty. Good hemostasis was noted. Sponge and instruments counts were correct.
== END | disposition home or self-care (01) ==
LOC: M SDC 12:05
PROVIDERS: ATTEND Specialist
DX: O02.1 Missed abortion (principal); E03.9 Hypothyroidism, unspecified; F17.210 Nicotine dependence, cigarettes, uncomplicated; Z79.899 Other long term (current) drug therapy
CPT/HCPCS: 36415; 59820; 85014; 85018; 88305; J1100; J1885; J2250; J2405; J3010

== ENCOUNTER → 2016-08-25 | Outpatient (REF) | payer OTHER ==
[~2016-08-25] MED LIST changes: -ACETAMINOPHEN 500 MG TAB PO PRN; -KETOROLAC 60 MG/2 ML VIAL (J1885) As Ordered ONE; -LIDOCAINE 1% MDV 20ML VIAL As Ordered ONE; -LR 1,000 ML IV SCH; -MEPERIDINE INJ 25 MG/ML VIAL (J2175) IV PRN; -METOCLOPRAMIDE INJ 10MG/2ML VIAL (J2765) IV PRN; -MIDAZOLAM INJ 2 MG/2 ML VIAL (J2250) As Ordered ONE; -ONDANSETRON 4MG/2ML VIAL (J2405) As Ordered ONE; -ONDANSETRON 4MG/2ML VIAL (J2405) IV PRN; -PERCOCET 5MG/325MG TAB PO PRN; -PROPOFOL 200 MG/20 ML VIAL As Ordered ONE; -dexameTHASONE 4 MG/ML 1ML VIAL (J1100) As Ordered ONE; -fentaNYL 100 MCG/2 ML INJECTION (J3010) As Ordered ONE; -fentaNYL 100 MCG/2 ML INJECTION (J3010) IV PRN
[2016-08-25 12:52] LABS: FREE T4 1.07 NG/DL (0.76-1.46)
== END ==
LOC: M SFHCLERA 10:03
PROVIDERS: ATTEND Family Medicine
DX: E03.9 Hypothyroidism, unspecified (principal); O03.9 Complete or unspecified spontaneous abortion without complication

== ENCOUNTER → 2016-11-19 | Outpatient (REF) | payer OTHER | LOC: M SFHCLERA 11-17 09:09 | PROVIDERS: ATTEND Family Medicine | DX: K21.9 Gastro-esophageal reflux disease without esophagitis (principal) ==

== ENCOUNTER 2016-12-19 10:56 | Emergency (ER) | payer OTHER ==
[~2016-12-19] VITALS: Ht 170.2 cm; Wt 75.9 kg
[2016-12-19] MEDS ORDERED: GABA-282 PO (11:06)
[2016-12-19] MEDS ORDERED: GASTROGRAFIN SOLUTION 30ML (Q9963) As Ordered ONE (11:29)
[2016-12-19] MEDS ORDERED: PANTOPRAZOLE 40MG INJ (PROTONIX) (C9113) IV ONE (11:30)
[2016-12-19] MEDS ORDERED: NS 1,000 ML IV ONE (11:30)
[2016-12-19 11:41] LABS: BASO % 0.2 % (0.0-1.0); EOS # 0.1 K/mm3 (0.0-0.50); EOS % 1.4 % (0.0-3.0); LARGE UNSTAINED CELL % 0.9 % (0.0-4.0); LYMPH % 18.9 % (24.0-44.0); MEAN CORPUSCULAR HEMOGLOBIN 33.3 pg (27.0-33.0); MEAN CORPUSCULAR HGB CONC 34.7 g/dl (32.0-36.5); MEAN CORPUSCULAR VOLUME 95.9 fl (80.0-96.0); MONO # 0.2 K/mm3 (0.0-0.8); MONO % 3.2 % (0.0-5.0); NEUTROPHILS # 3.7 K/mm3 (1.8-7.7); NEUTROPHILS % 75.5 % (36.0-66.0); PLATELET COUNT, AUTOMATED 184 k/mm3 (150-450); RED CELL DISTRIBUTION WIDTH 12.6 % (11.5-14.5); WHITE BLOOD COUNT 4.9 K/mm3 (4.0-10.0)
[2016-12-19] MEDS ORDERED: GASTROGRAFIN SOLUTION 30ML PO ONE (11:45)
[2016-12-19 12:09] LABS: ALBUMIN/GLOBULIN RATIO 1.33 (1.00-1.93); ALKALINE PHOSPHATASE 51 U/L (45-117); ALT/SGPT 23 U/L (12-78); AMYLASE 59 U/L (25-115); ANION GAP 9 MEQ/L (8-16); AST/SGOT 13 U/L (15-37); BILIRUBIN,DIRECT 0.2 MG/DL (0.0-0.2); BILIRUBIN,TOTAL 0.6 MG/DL (0.2-1.0); BLOOD UREA NITROGEN 8 MG/DL (7-18); CALCIUM LEVEL 8.8 MG/DL (8.5-10.1); CARBON DIOXIDE LEVEL 25 MEQ/L (21-32); CHLORIDE LEVEL 107 MEQ/L (98-107); CREATININE FOR GFR 0.79 MG/DL (0.55-1.02); GLOMERULAR FILTRATION RATE > 60.0 (>60); GLUCOSE, FASTING 111 MG/DL (70-105); POTASSIUM SERUM 3.4 MEQ/L (3.5-5.1); SODIUM LEVEL 141 MEQ/L (136-145)
[2016-12-19 12:10] LABS: CONTROL LINE HCG INT CTR LINE PRESENT
[2016-12-19] MEDS ORDERED: GASTROGRAFIN SOLUTION 30ML (Q9963) PO ONE (12:15)
[2016-12-19] MEDS ORDERED: ISOVUE-370 76% 100ML VIAL (Q9967) As Ordered ONE (13:07)
[2016-12-19] MEDS ORDERED: PROT1TAB2 PO (14:17)
[2016-12-19 14:30] VITALS: BP 120/82
--- NOTE | 2016-12-19 14:37 | REP ---
REASON: Abdominal pain. PRIORS: None. CONTRAST: 100 mL of Isovue 370. The lung bases are clear. The liver, gallbladder, spleen, pancreas, adrenal glands, and kidneys are normal. The abdominal aorta and para-aortic regions are normal. The bowel loops and their mesenteries are within normal limits. There is no free fluid or free air. There is no mass or adenopathy. CT PELVIS: The bowel loops and their mesenteries are within normal limits. There is no free fluid or free air. There is no mass or adenopathy. Bone window technique throughout the examination shows the osseous structures to be within normal limits. IMPRESSION: Negative CT abdomen and pelvis as described above. Signed by Aston Villar DO 12/19/2016 04:42 P
== END 2016-12-19 14:33 | disposition home or self-care (01) ==
LOC: M ED 10:58
DX: R10.9 Unspecified abdominal pain (principal); G89.29 Other chronic pain; F17.200 Nicotine dependence, unspecified, uncomplicated; Z79.899 Other long term (current) drug therapy
CPT/HCPCS: 36415; 74177; 80048; 80076; 82150; 83690; 84703; 85025; 93041; 96361; 96374; 99284; C9113; Q9963; Q9967

== ENCOUNTER 2017-01-01 13:23 | Outpatient (CLI) | payer OTHER ==
[~2017-01-01] VITALS: Ht 170.2 cm; Wt 74.4 kg
[~2017-01-01 13:23] MED LIST changes: +GABA-282 PO; +PROT1TAB2 PO
[2017-01-01] MEDS ORDERED: NS 1,000 ML IV ONE (13:30)
--- NOTE | 2017-01-01 14:44 | ROOR ---
Patient Name: Cathryn Leary Procedure Date: 01/01/2017 2:32 PM Date of : 1985 Age: 31 Room: [facility] Gender: Female Note Status: Finalized Procedure: Upper GI endoscopy Indications: Epigastric abdominal pain, Dyspepsia, Follow-up of Helicobacter pylori. (s/p therapy) Providers: Rancho MORALES MD Referring MD: Sharon MEZA MD Requesting Provider: Medicines: Monitored Anesthesia Care Complications: No immediate complications. Procedure: Pre-Anesthesia Assessment: - The heart rate, respiratory rate, oxygen saturations, blood pressure, adequacy of pulmonary ventilation, and response to care were monitored throughout the procedure. The Endoscope was introduced through the mouth, and advanced to the second part of duodenum. The upper GI endoscopy was accomplished without difficulty. The patient tolerated the procedure well. Findings: The esophagus was normal. The stomach was normal. The examined duodenum was normal. Biopsies were taken with a cold forceps in the gastric body and in the gastric antrum for Helicobacter pylori testing. Impression: - Normal esophagus. - Normal stomach. - Normal examined duodenum. - Biopsies were taken with a cold forceps for Helicobacter pylori testing. Recommendation: - Continue present medications. - Telephone endoscopist for pathology results in 2 weeks. Rancho Morales MD Rancho MORALES MD 01/01/2017 2:44:23 PM This report has been signed electronically. Number of Addenda: 0 Note Initiated On: 01/01/2017 2:32 PM Estimated Blood Loss: Estimated blood loss: none.
[2017-01-01 15:12] VITALS: BP 118/82
== END 2017-01-01 15:14 | disposition home or self-care (01) ==
LOC: M OPP 13:23
PROVIDERS: ATTEND Internal Medicine Gastroenterology
DX: Z09 Encounter for follow-up examination after completed treatment for conditions other than malignant neoplasm (principal); B96.81 Helicobacter pylori [H. pylori] as the cause of diseases classified elsewhere; R10.13 Epigastric pain; E03.9 Hypothyroidism, unspecified; M54.2 Cervicalgia; R51 Headache; F41.9 Anxiety disorder, unspecified; F17.210 Nicotine dependence, cigarettes, uncomplicated; Z79.899 Other long term (current) drug therapy

== ENCOUNTER → 2017-02-03 | Outpatient (REF) | payer OTHER ==
[2017-02-06 00:08] LABS: ACETAMINOPHEN Negative ug/mL (10-30); AMITRIPTYLINE None Detected (Not Estab.); BUTALBITAL None Detected ug/mL (1-10); DESIPRAMINE None Detected (Not Estab.); DIAZEPAM None Detected ug/mL (0.1-0.9); DOXEPIN None Detected (Not Estab.); ETHANOL Negative % (0.000-0.010); NORCHLORDIAZEPOXIDE None Detected ug/mL (0.1-0.6); NORDIAZEPAM None Detected ug/mL (0.1-1.4); NORDOXEPIN None Detected (Not Estab.); NORTRIPTYLINE None Detected ng/mL (50-150); PENTOBARBITAL None Detected ug/mL (1-5); PHENOBARBITAL None Detected ug/mL (15-40); PHENYTOIN None Detected ug/mL (10.0-20.0)
== END ==
LOC: M LABDRAW1 10:09
PROVIDERS: ATTEND Physical Medicine & Rehabilitation
DX: M50.30 Other cervical disc degeneration, unspecified cervical region (principal)

== ENCOUNTER → 2017-03-03 | Outpatient (CLI) | payer OTHER ==
--- NOTE | 2017-03-03 09:44 | REP ---
Right upper quadrant sonography: History: Right upper quadrant pain, worse after eating fatty meals. Question gallstones. Comparison study: CT study abdomen pelvis December 19, 2016 Findings: Scanning through the right upper quadrant of the abdomen demonstrates a normal sized, thin-walled gallbladder without evidence of stone or polyp. Common bile duct is normal measuring 0.2 cm in greatest diameter. No focal liver lesion is seen. Liver size is normal. No pancreatic abnormality is observed. No right renal abnormality is seen. There is no evidence of ascites. The right kidney measures 11.0 x 6.0 x 3.2 cm. Impression: Negative right upper quadrant sonography. Signed by Dawood Cleaning MD 03/03/2017 09:35 A
== END ==
LOC: M RAD 08:01
PROVIDERS: ATTEND Family Medicine
DX: R10.9 Unspecified abdominal pain (principal)

== ENCOUNTER → 2017-04-08 | Outpatient (REF) | payer OTHER ==
[2017-04-08 12:28] LABS: CONTROL LINE UCG INT CTR LINE PRESENT
== END ==
LOC: M SFHCLERA 08:53
PROVIDERS: ATTEND Family Medicine
DX: E03.9 Hypothyroidism, unspecified (principal); Z86.19 Personal history of other infectious and parasitic diseases; N91.2 Amenorrhea, unspecified

== ENCOUNTER → 2017-06-23 | Outpatient (CLI) | payer OTHER | LOC: M EKG 11:26 | DX: M50.30 Other cervical disc degeneration, unspecified cervical region (principal); M47.20 Other spondylosis with radiculopathy, site unspecified | CPT/HCPCS: 93005 ==

== ENCOUNTER 2017-08-03 18:14 | Emergency (ER) | payer OTHER ==
[2017-08-03 20:10] LABS: KETONE, URINE AUTO RFX NEGATIVE (NEGATIVE); LEUKOCYTE ESTERASE UR AUTO RFX NEGATIVE (NEGATIVE); MUCUS, URINE RFX SMALL (NEGATIVE); NITRITE, URINE AUTO RFX NEGATIVE (NEGATIVE); RBC, URINE AUTO RFX 2 /HPF (0-3); SPECIFIC GRAVITY UR AUTO RFX 1.016 (1.002-1.035); SQUAM EPITHELIAL CELL UR AURFX 0 /HPF (0-6); WBC, URINE AUTO RFX 0 /HPF (0-3)
[2017-08-03 20:15] LABS: BASO % 0.4 % (0.0-1.0); EOS % 0.5 % (0.0-3.0); HEMATOCRIT 35.5 % (36.0-47.0); HEMOGLOBIN 12.1 g/dl (12.0-16.0); IMMATURE GRANULOCYTE % 0.5 % (0-3.0); LYMPH # 2.4 10^3/uL (1.5-4.5); LYMPH % 28.1 % (24.0-44.0); MEAN CORPUSCULAR HEMOGLOBIN 31.9 pg (27.0-33.0); MEAN CORPUSCULAR HGB CONC 34.1 g/dl (32.0-36.5); MEAN CORPUSCULAR VOLUME 93.7 fl (80.0-96.0); MONO # 0.6 10^3/uL (0.0-0.8); MONO % 6.6 % (0.0-5.0); NEUTROPHILS # 5.5 10^3/uL (1.8-7.7); NEUTROPHILS % 63.9 % (36.0-66.0); PLATELET COUNT, AUTOMATED 223 10^3/uL (150-450); RED BLOOD COUNT 3.79 10^6/uL (4.00-5.40); RED CELL DISTRIBUTION WIDTH 12.7 % (11.5-14.5); WHITE BLOOD COUNT 8.5 10^3/uL (4.0-10.0)
[2017-08-03] MEDS: METOCLOPRAMIDE INJ 10MG/2ML VIAL (J2765) IV (20:38)
[2017-08-03] MEDS: NS 1,000 ML IV (20:38)
[2017-08-03] MEDS: diphenhydrAMINE INJ 50MG/ML VIAL (J1200) IV (20:38)
[2017-08-03 21:23] LABS: ALBUMIN 3.8 GM/DL (3.2-5.2); ALBUMIN/GLOBULIN RATIO 1.06 (1.00-1.93); ALKALINE PHOSPHATASE 52 U/L (45-117); ALT/SGPT 24 U/L (12-78); ANION GAP 4 MEQ/L (8-16); AST/SGOT 12 U/L (7-37); BILIRUBIN,DIRECT < 0.1 MG/DL (0.0-0.2); BILIRUBIN,TOTAL 0.2 MG/DL (0.2-1.0); BLOOD UREA NITROGEN 8 MG/DL (7-18); CALCIUM LEVEL 8.6 MG/DL (8.5-10.1); CARBON DIOXIDE LEVEL 29 MEQ/L (21-32); CHLORIDE LEVEL 106 MEQ/L (98-107); GLOMERULAR FILTRATION RATE > 60.0 (>60); GLUCOSE, FASTING 84 MG/DL (70-100); HCG, SERUM QUANTITATIVE 46209 MIU/ML; LIPASE 130 U/L (73-393); POTASSIUM SERUM 3.3 MEQ/L (3.5-5.1); SODIUM LEVEL 139 MEQ/L (136-145); TOTAL PROTEIN 7.4 GM/DL (6.4-8.2)
[2017-08-03] MEDS: POTASSIUM CHLORIDE 10 MEQ SR TABLET PO (22:11)
== END 2017-08-03 22:16 | disposition home or self-care (01) ==
LOC: M ED 18:14
DX: O21.0 Mild hyperemesis gravidarum (principal); O99.281 Endocrine, nutritional and metabolic diseases complicating pregnancy, first trimester; E87.6 Hypokalemia; E07.9 Disorder of thyroid, unspecified; Z86.19 Personal history of other infectious and parasitic diseases; Z3A.01 Less than 8 weeks gestation of pregnancy; Z79.890 Hormone replacement therapy
CPT/HCPCS: J1200

== ENCOUNTER → 2017-08-13 | Outpatient (CLI) | payer OTHER ==
[2017-08-13 17:17] LABS: BASO % 0.2 % (0.0-1.0); EOS % 0.2 % (0.0-3.0); HEMATOCRIT 38.7 % (36.0-47.0); HEMOGLOBIN 13.1 g/dl (12.0-16.0); IMMATURE GRANULOCYTE % 0.4 % (0-3.0); LYMPH # 1.3 10^3/uL (1.5-4.5); LYMPH % 15.5 % (24.0-44.0); MEAN CORPUSCULAR HEMOGLOBIN 32.3 pg (27.0-33.0); MEAN CORPUSCULAR HGB CONC 33.9 g/dl (32.0-36.5); MEAN CORPUSCULAR VOLUME 95.3 fl (80.0-96.0); MONO # 0.6 10^3/uL (0.0-0.8); MONO % 7.5 % (0.0-5.0); NEUTROPHILS # 6.3 10^3/uL (1.8-7.7); NEUTROPHILS % 76.2 % (36.0-66.0); PLATELET COUNT, AUTOMATED 269 10^3/uL (150-450); RED BLOOD COUNT 4.06 10^6/uL (4.00-5.40); RED CELL DISTRIBUTION WIDTH 12.9 % (11.5-14.5); WHITE BLOOD COUNT 8.3 10^3/uL (4.0-10.0)
[2017-08-13 17:23] LABS: TOTAL PROTEIN,RANDOM URINE 23.3 MG/DL (0.0-12.0)
[2017-08-13 19:17] LABS: CHLAMYDIA DNA AMPLIFICATION NEGATIVE (NEGATIVE); GC DNA AMPLIFICATION NEGATIVE (NEGATIVE)
[2017-08-13 20:45] LABS: ALT/SGPT 27 U/L (12-78); AST/SGOT 14 U/L (7-37); BILIRUBIN,TOTAL 0.4 MG/DL (0.2-1.0); CREATININE FOR GFR 0.65 MG/DL (0.55-1.30); GLOMERULAR FILTRATION RATE > 60.0 (>60); LDH LACTATE DEHYDROGENASE 148 U/L (84-246)
[2017-08-16 10:23] LABS: RUBELLA IgG QUALITATIVE IMMUNE (IMMUNE)
[2017-08-16 10:29] LABS: HBsAg Prenatal NEGATIVE (NEGATIVE)
[2017-08-16 10:52] LABS: HEPATITIS C VIRUS ABY INDEX 0.1 INDEX (<0.8)
[2017-08-16 10:52] LABS: HIV 1&2 SCREEN CENTAUR NEGATIVE (NEGATIVE)
== END ==
LOC: M SMT 11:29
DX: Z34.81 Encounter for supervision of other normal pregnancy, first trimester (principal); Z3A.09 9 weeks gestation of pregnancy
CPT/HCPCS: 84460

== ENCOUNTER 2017-09-13 15:17 | Emergency (ER) | payer OTHER ==
[2017-09-13] MEDS: METOCLOPRAMIDE INJ 10MG/2ML VIAL (J2765) IV (15:56)
[2017-09-13] MEDS: NS 1,000 ML IV (15:57)
[2017-09-13 16:16] LABS: BASO % 0.2 % (0.0-1.0); EOS % 0.5 % (0.0-3.0); HEMATOCRIT 35.8 % (36.0-47.0); HEMOGLOBIN 12.6 g/dl (12.0-15.5); IMMATURE GRANULOCYTE % 0.5 % (0-3.0); LYMPH # 1.1 10^3/uL (1.5-4.5); MEAN CORPUSCULAR HEMOGLOBIN 33.7 pg (27.0-33.0); MEAN CORPUSCULAR HGB CONC 35.2 g/dl (32.0-36.5); MEAN CORPUSCULAR VOLUME 95.7 fl (80.0-96.0); MONO # 0.5 10^3/uL (0.0-0.8); MONO % 5.6 % (0.0-5.0); NEUTROPHILS % 80.2 % (36.0-66.0); PLATELET COUNT, AUTOMATED 233 10^3/uL (150-450); RED BLOOD COUNT 3.74 10^6/uL (4.00-5.40); WHITE BLOOD COUNT 8.7 10^3/uL (4.0-10.0)
[2017-09-13 16:37] LABS: ANION GAP 6 MEQ/L (8-16); BLOOD UREA NITROGEN 8 MG/DL (7-18); CALCIUM LEVEL 8.9 MG/DL (8.5-10.1); CARBON DIOXIDE LEVEL 24 MEQ/L (21-32); CHLORIDE LEVEL 106 MEQ/L (98-107); GLOMERULAR FILTRATION RATE > 60.0 (>60); GLUCOSE, FASTING 79 MG/DL (70-100); POTASSIUM SERUM 4.3 MEQ/L (3.5-5.1); SODIUM LEVEL 136 MEQ/L (136-145)
== END 2017-09-13 17:22 | disposition home or self-care (01) ==
LOC: M ED 15:17
DX: O21.1 Hyperemesis gravidarum with metabolic disturbance (principal); Z87.19 Personal history of other diseases of the digestive system; Z79.899 Other long term (current) drug therapy
CPT/HCPCS: J2765

== ENCOUNTER → 2017-11-18 | Outpatient (CLI) | payer OTHER ==
[2017-11-18 10:09] LABS: FREE T4 1.07 NG/DL (0.76-1.46)
== END ==
LOC: M LAB 08:51
DX: Z34.82 Encounter for supervision of other normal pregnancy, second trimester (principal); Z3A.00 Weeks of gestation of pregnancy not specified
CPT/HCPCS: 76811

== ENCOUNTER → 2017-11-18 | Outpatient (CLI) | payer OTHER | LOC: M RAD 09:25 | DX: Z34.82 Encounter for supervision of other normal pregnancy, second trimester (principal); Z36.89 Encounter for other specified antenatal screening; Z3A.22 22 weeks gestation of pregnancy ==